=== PATIENT | female | born 1970 | race Caucasian/White ===

== ENCOUNTER 2023-12-19 13:07 | Emergency (ER) | payer SELFPAY ==
[2023-12-19] VITALS (10 sets, daily range): BP systolic 107–168; BP diastolic 61–96; PULSE 77–98; RESP 16–20; TEMP 35.9–36.6; O2SAT 96–98; BMI 34.6
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
--- NOTE | 2023-12-19 13:45 | NURSING ---
NO OLD EKGS
[2023-12-19 14:00] LABS: Absolute Lymphocyte Count 1.36 X10^3/uL (0.83-4.51); Absolute Neutrophil Count 16.1 X10^3/uL (2.0-7.7); Basophil# 0.14 X10^3/uL; Basophil% 0.7 % (0-1); Differential Indicated SCAN CRITERIA MET; Eosinophil# 0.39 X10^3/uL; Hematocrit 32.7 % (37-47); Hemoglobin 9.3 g/dL (12.0-15.0); Lymphocyte # 1.36 X10^3/ul (0.83-4.51); Mean Corp Hgb Conc 28.4 g/dL (32-36); Mean Corpuscular Hgb 20.9 pg (27.0-32.0); Mean Corpuscular Volume 73.3 fL (81-99); Monocyte# 1.19 X10^3/uL; Monocyte% 6.2 % (0-10); NRBC Flagged by Analyzer 0 % (0-5); Neutrophil # 16.11 X10^3/uL (2.7-7.7); Neutrophil % 83.5 % (47-70); POSITIVE MORPHOLOGY YES; Platelet Count 421 K/mm3 (150-450); RBC Distribution Width CV 20.9 % (11.6-14.6); RBC Distribution Width SD 53.9 fl (35.1-43.9); Red Blood Count 4.46 M/mm3 (4.2-5.4); White Blood Count 19.3 K/mm3 (4.4-11.0)
[2023-12-19 14:20] LABS: Internal QC Validated? YES +Cl - CLEAR BKGD; Pregnancy, Serum, hCG Quali. NEGATIVE Negative
[2023-12-19 14:26] LABS: Anion Gap 7 (5-15); BUN 12 mg/dL (7-18); BUN/Creat Ratio 12.3 RATIO (10-20); Calcium,Total 8.8 mg/dL (8.5-10.1); Chloride 112 mmol/L (98-107); Creatinine, Serum 0.97 mg/dL (0.55-1.02); EST Glomerular Filtration Rate 64 mL/min (>60); Est Glom Filt Rate - Afr Amer 77 mL/min (>60); Estimated Creatinine Clearance 84.39 ml/min; Glucose 127 mg/dL (74-106); Potassium 3.5 mmol/L (3.5-5.1); Sodium Level 141 mmol/L (136-145)
[2023-12-19 14:56] LABS: Anisocytosis 2+
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
[2023-12-19 15:00] LABS: Polychromasia 1+
--- NOTE | 2023-12-19 15:00 | RAD_ITS ---
INDICATION: CP EXAMINATION/TECHNIQUE: X-RAY - XR Chest 1 View COMPARISON: 12/19/2023 at 2:27 PM FINDINGS: NOTE: Examination identified from 12/19/2023 at 3:01 PM submitted for evaluation on 12/28/2023 LIFE-SUPPORT AND LINES: 1. None HEART AND VESSELS: The cardiac silhouette, pulmonary vasculature have normal appearance. No evidence of congestive failure. LUNGS AND PLEURAL SPACES: Lungs are clear. No focal infiltrate, consolidation or effusions. No evidence of pneumothorax. There is shallow inspiration mild crowding of bronchovascular markings. MEDIASTINUM AND HILAR REGIONS: No masses adenopathy noted. No areas of calcification. Visualized upper airway is normal in position. BONY ELEMENTS: No acute bony changes noted. RAD/Chest 1 View (Portable) IMPRESSION: 1. No evidence of acute cardiopulmonary process. 2. Shallow inspiration and mild crowding of bronchovascular markings. Electronically Signed: Dreik Hogan MD at 17:48 EDT ,
[2023-12-19 15:01] LABS: Hypochromasia 1+
[2023-12-19] MEDS: 0.9% Normal Saline (1000mL) 1,000 ML 999 ML IV (15:10)
[2023-12-19 15:30] LABS: Amphetamine Urine VISTA NEGATIVE (<1000 ng/mL); Barbiturate Urine VISTA NEGATIVE (< 200 ng/mL); Benzodiazepine Urine VISTA NEGATIVE (< 200 ng/mL); Cocaine Urine VISTA NEGATIVE (< 300 ng/mL); Ecstacy Urine VISTA NEGATIVE (< 500 ng/mL); Methadone Urine VISTA NEGATIVE (< 300 ng/mL); PCP Urine VISTA NEGATIVE (< 25 ng/mL); THC Urine VISTA POSITIVE (< 50 ng/mL); Vista UDS pH Range 6
--- NOTE | 2023-12-19 16:10 | ED.RN ---
found pt sitting at foot of bed. removed c collar and head wound dressing. importance of c collar explained and reapplied. pt immediately removed c collar despite explanation. pt placed in position of comfort.
--- NOTE | 2023-12-19 16:27 | ED.RN ---
this RN notified by dr ware that pt does not need to wear c collar
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
--- NOTE | 2023-12-19 17:10 | ED.RN ---
pt states she has no one to come get her. States all her family has cancelled her. She states she pays rent for a room in [facility]. States she has no place to go SW notified.
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
[2023-12-19] MEDS: Lidocaine 1% (20 ml mdv) 20 ML Vial 10 ML INFILT (18:44)
== END 2023-12-19 20:40 | disposition home or self-care (01) ==
PROVIDERS: Emergency Provider Emergency Medicine; Visit Provider Emergency Medicine
DX: S01.01XA Laceration without foreign body of scalp, initial encounter (principal); S51.011A Laceration without foreign body of right elbow, initial encounter; M47.819 Spondylosis without myelopathy or radiculopathy, site unspecified; V43.52XA Car driver injured in collision with other type car in traffic accident, initial encounter; Z87.891 Personal history of nicotine dependence
CPT/HCPCS: 12004; 70450; 70496; 70498; 71045; 71260; 72125; 72170; 73080; 74177; 80048; 80307; 82077; 84703; 85025; 93005; 99285; J7030; Q9967; A4216

== ENCOUNTER 2024-05-12 22:29 | Emergency (ER) | payer MEDICAID, SELFPAY ==
[2024-05-12 22:30] VITALS: BP 154/104; PULSE 125; RESP 16; TEMP 36.6; O2SAT 96; BMI 31.7
[2024-05-12 23:28] VITALS: BP 157/129; PULSE 120; RESP 18; TEMP 36.6; O2SAT 98
[2024-05-13] VITALS: BP 147/108; PULSE 112; RESP 18; TEMP 36.6; O2SAT 97
[2024-05-13 00:13] LABS: Absolute Lymphocyte Count 1.02 X10^3/uL (0.83-4.51); Absolute Neutrophil Count 9.5 X10^3/uL (2.0-7.7); Basophil# 0.13 X10^3/uL; Basophil% 1.1 % (0-1); Eosinophil# 0.02 X10^3/uL; Eosinophils% 0.2 % (0-5); Hematocrit 41.2 % (37-47); Hemoglobin 12.2 g/dL (12.0-15.0); Lymphocyte # 1.02 X10^3/ul (0.83-4.51); Mean Corp Hgb Conc 29.6 g/dL (32-36); Mean Corpuscular Hgb 21.7 pg (27.0-32.0); Mean Corpuscular Volume 73.2 fL (81-99); Mean Platelet Vol. 10.4 fl (6.2-12.0); Monocyte% 6.1 % (0-10); NRBC Flagged by Analyzer 0 % (0-5); Neutrophil # 9.46 X10^3/uL (2.7-7.7); Neutrophil % 83.1 % (47-70); POSITIVE MORPHOLOGY YES; Platelet Count 356 K/mm3 (150-450); RBC Distribution Width SD 51.3 fl (35.1-43.9); Red Blood Count 5.63 M/mm3 (4.2-5.4); White Blood Count 11.4 K/mm3 (4.4-11.0)
--- NOTE | 2024-05-13 00:15 | RAD_ITS ---
INDICATION: ? osteo EXAMINATION/TECHNIQUE: X-RAY - LEFT XR Tibia/Fibula 2 Views 2 VIEWS COMPARISON: None. FINDINGS: SOFT TISSUES: Focal skin defect anterior to the mid tibia. No gas formations. No radiopaque foreign body. BONES/JOINTS: No acute fracture. Joint spaces anatomically aligned with mild degenerative changes. No sclerotic or destructive changes observed. RAD/Tibia & Fibula 2 Views IMPRESSION: Mild degenerative changes without cortical destructive lesion. Electronically Signed: Valdo Briggs MD at 0:37 EST ,
[2024-05-13 00:18] LABS: Differential Indicated SCAN CRITERIA MET
--- NOTE | 2024-05-13 01:40 | EX.ED.DYSGE1 ---
HPI History of Present Illness Chief Complaint: Wound Informant: patient Narrative Narrative: Patient is a 53-year-old female who has a past medical history of a chronic wound to her left lower leg. She states the wound has been there for multiple years and she is seen multiple providers regarding the wound. She states however that she has difficulty with her follow-up appointments and typically does not make it to the scheduled events. She reports the wound is overall similar to how it has been over the past few weeks. she states however she was concerned that the area may now be infected and therefore comes in for evaluation PFSH [facility] Home Medications ?Medication ?Instructions ?Recorded ?Last Taken ?Type NK 05/12/24 Unknown History Allergy/AdvReac Type Severity Reaction Status Date / Time lisinopril Allergy Severe PT UNSURE Verified 05/12/24 22:30 OF REACTION Social History Smoking Status: Never smoker ROS ROS ED Constitutional Constitutional ED: Denies chills or fever(s) ENT ENT ED: Denies sore throat Cardiovascular Cardiovascular: Denies chest pain Respiratory/Chest Respiratory/Chest: Denies cough or dyspnea Gastrointestinal Gastrointestinal: Denies abdominal pain, diarrhea, nausea or vomiting Genitourinary Genitourinary ED: Denies dysuria Musculoskeletal Musculoskeletal: Reports other Details: Positive chronic left lower leg pain Integumentary Reports other Details: Positive chronic wound left lower leg Neurologic Neurologic: Denies headache(s) Hematologic/Lymphatic Hematologic/Lymphatic: Denies easy bleeding or easy bruising EXAM Physical Exam Const Vital Signs: 05/12/24 22:30 05/12/24 23:28 05/13/24 00:00 Temperature 98 F 97.9 F 97.9 F Temperature Source Oral Oral Oral Pulse Rate 125 H 120 H 112 H Respiratory Rate 16 18 18 Blood Pressure 154/104 H 157/129 H 147/108 H Blood Pressure Mean 120 138 121 Pulse Ox 96 98 97 Oxygen Delivery Method Room Air Room Air Room Air Positive well nourished and well developed General Appearance ED: well developed HEENT HEENT Narrative: Normocephalic atraumatic Eyes PERRL and EOMs intact bilaterally General Eye ED: Negative for scleral icterus Neck supple Neck Narrative: No nuchal rigidity or meningeal signs Resp normal respiratory effort and clear to auscultation bilaterally Cardio regular rate and regular rhythm Extremity Extremity Narrative: Left lower extremity is neurovascularly intact. Patient has soft tissue skin breakdown extending from the distal third of the ankle to just above the proximal portion of the foot. The skin is sloughing and capillary refill is approximately 3 seconds. There is a palpable dorsalis pedis and posterior tibial pulse going against arterial occlusion. There is no lymphangitic streaking. Compartments are soft and compressible going against compartment syndrome. Negative Homans' sign bilaterally. Neuro oriented x3 and CN's II-XII intact bilaterally Sensorium / Orientation: alert Motor Exam: strength 5/5 throughout Psych mental status grossly normal Skin Skin Narrative: Chronic wound left lower leg as documented above MDM MDM MDM Narrative Medical decision making narrative: Patient arrived to the ER afebrile but hypertensive and tachycardic. She reports the wound has been present for multiple years and has been roughly similar in appearance over the last few weeks. She lately states she has not followed with wound care or vascular surgery. She denies fevers or chills or increased pain but now has concern for potential infection. With concern for cellulitis versus abscess versus osteomyelitis I did elect to perform basic laboratory studies and an x-ray. The patient's white count is only slightly elevated 11.4. Her CRP is slightly elevated 11.6 but this could be related to inflammation from chronic wound versus infection. By exam there is no signs of cellulitis or abscess. she does not compartment syndrome. X-ray confirms no findings of osteomyelitis. The patient's heart rate reduced while at rest her blood pressure normalized as well. Therefore at this time as vitals have improved x-ray shows no signs of fracture or retained foreign body or osteomyelitis and she only has mild elevation to inflammatory markers consistent with a chronic wound I do not feel there is need for admission or further workup and she is otherwise safe for discharge History & Record Review Discussion w/independent historian: Patient Lab Data Attestation: I reviewed the patient's lab results. Labs: Laboratory Results - last 24 hr 05/13/24 00:07 WBC 11.4 H RBC 5.63 H Hgb 12.2 Hct 41.2 MCV 73.2 L MCH 21.7 L MCHC 29.6 L RDW Std Deviation 51.3 H RDW Coeff of Justin 21.0 H Plt Count 356 MPV 10.4 Immature Gran % (Auto) 0.500 Neut % (Auto) 83.1 H Lymph % (Auto) 9.0 L Divide % (Auto) 6.1 Eos % (Auto) 0.2 Baso % (Auto) 1.1 H Absolute Neuts (auto) 9.5 H Absolute Lymphs (auto) 1.02 Nucleated RBC % 0 C-React Prot Ext Range 11.60 H Radiography Diagnostic Testing: Clinical Impression(s) from Imaging Studies Tibia/Fibula X-Ray 05/13/24 00:15 IMPRESSION: Mild degenerative changes without cortical destructive lesion. Electronically Signed: Valdo Briggs MD at 0:37 EST , X-ray of the left tibia and fibula as interpreted by the emergency medicine physician reveals no acute fracture dislocation or signs of bony destruction consistent with osteomyelitis Discharge Plan Triage Chief Complaint: Wound ED Provider: Wil Quiñonez Dx/Rx/DC Orders Clinical Impression: Chronic wound of extremity Instructions: ED Wound Care Prescriptions: No Action NK Primary Care Provider: Care Physician,No Primary Referrals: Care Physician,No Primary [Primary Care Provider] - Hyperbaric Medicine,[facility] Wound and [Non-Staff] - Activity Restrictions/Additional Instructions: Your workup today does not show any signs of infection or bony involvement of your chronic wound. Follow-up with wound care to discuss further treatment strategies and return to the ER should you have any further concerns Print Language: Malagasy Disposition Disposition: Home, Self Care Discharge Date/Time: 05/13/24 02:02
[2024-05-13 02:00] VITALS: BP 124/81; PULSE 66; RESP 14; TEMP 36.6; O2SAT 99
[2024-05-13 02:15] LABS: Anisocytosis 1+; Platelet Estimate ADEQUATE (ADEQ)
== END 2024-05-13 02:02 | disposition home or self-care (01) ==
PROVIDERS: Emergency Provider Emergency Medicine; Visit Provider Emergency Medicine
DX: S81.802A Unspecified open wound, left lower leg, initial encounter (principal)
CPT/HCPCS: 73590; 85025; 86140; 99285; A4216